=== PATIENT | male | born 1965 | race Caucasian/White ===

== ENCOUNTER 2018-08-20 09:28 | Emergency (ER) | payer BC, OTHER ==
[~2018-08-20] VITALS: Ht 180.3 cm; Wt 90.7 kg
[2018-08-20 09:56] VITALS: BP_SYST 128
[2018-08-20 10:45] VITALS: BP_SYST 128
== END 2018-08-20 10:45 | disposition home or self-care (01) ==
LOC: SED 09:28
DX: S60.221A Contusion of right hand, initial encounter (principal); R03.0 Elevated blood-pressure reading, without diagnosis of hypertension; W22.8XXA Striking against or struck by other objects, initial encounter; Y93.89 Activity, other specified; Y92.89 Other specified places as the place of occurrence of the external cause; Y99.8 Other external cause status
CPT/HCPCS: 99283